=== PATIENT | female | born 1955 | race Asian ===

== ENCOUNTER 2017-08-19 08:00 | Outpatient (CLI) | payer BC | END 2017-08-19 08:01 | disposition home or self-care (01) | LOC: BICMAMMO 08:00 | PROVIDERS: ATTEND Internal Medicine | DX: Z12.31 Encounter for screening mammogram for malignant neoplasm of breast (principal) | CPT/HCPCS: 77063; 77067; G0202 ==

== ENCOUNTER 2018-08-24 09:18 | Outpatient (CLI) | payer BC ==
--- NOTE | 2018-08-24 12:28 | MMO ---
BILATERAL DIGITAL SCREENING MAMMOGRAMS: Date: 08/24/18 HISTORY: 63-year-old female presents for digital screening mammogram. COMPARISON: 08/19/17, 07/17/14. FINDINGS: This patient's mammogram was interpreted with the assistance of computer-aided detection. The breasts are heterogeneously dense, which can obscure small masses. Stable typically benign calcif ications. Stable biopsy clip in the inner aspect of the left breast. IMPRESSION: BIRADS 2: Benign Finding(s) Continue routine screening. POS: [facility]
== END 2018-08-24 09:19 | disposition home or self-care (01) ==
LOC: SCSMAMMO 09:18
PROVIDERS: ATTEND Internal Medicine
DX: Z12.31 Encounter for screening mammogram for malignant neoplasm of breast (principal)
CPT/HCPCS: 77067